=== PATIENT | female | born 1950 | race Caucasian/White ===

== ENCOUNTER 2023-02-20 23:56 | Inpatient (IN) | payer MEDICARE ==
[~2023-02-20] VITALS: Ht 160 cm; Wt 56.2 kg
[2023-02-21] MEDS ORDERED: FAMOTIDINE/PF INJ 20 MG/2 ML VIAL IV ONE ×2 (01:30→01:33)
[2023-02-21] MEDS ORDERED: ONDANSETRON HCL/PF 4 MG/2 ML VIAL IVP ONE (01:30)
[2023-02-21] MEDS ORDERED: IV NS 0.9% 1,000 ML BAG IV ONE (01:30)
[2023-02-21] MEDS ORDERED: ONDANSETRON HCL/PF 4 MG/2 ML VIAL ONE (01:33)
[2023-02-21 02:17] LABS: BASOPHILS % (AUTO) 0.2 % (0.0-2.0); EOSINOPHILS % (AUTO) 0.1 % (0.0-6.0); HEMATOCRIT 40 % (33-45); HEMOGLOBIN 13.1 g/dL (11.5-14.8); LYMPHOCYTES # (AUTO) 0.7 K/uL (0.8-4.8); LYMPHOCYTES % (AUTO) 7.8 % (20.0-44.0); MEAN CORPUSCULAR HEMOGLOBIN 29 PG (26.0-33.0); MEAN CORPUSCULAR HGB CONC 33 g/dl (31.0-36.0); MEAN CORPUSCULAR VOLUME 87 fL (82-100); MONOCYTES # (AUTO) 0.8 K/uL (0.1-1.30); MONOCYTES % (AUTO) 8.2 % (2.0-12.0); NEUTROPHILS % (AUTO) 83.7 % (43.0-81.0); PLATELET COUNT (AUTO) 282 K/uL (150-450); RED BLOOD CELL COUNT(AUTO) 4.55 MIL/uL (4.0-5.2); RED CELL DISTRIBUTION WIDTH 13.6 % (11.5-15.0); WHITE BLOOD COUNT (AUTO) 9.5 K/uL (4.3-11.0)
[2023-02-21 02:24] LABS: CALCIUM, SERUM 9.8 mg/dL (8.5-10.1); CARBON DIOXIDE 26 mmol/L (21-32); CHLORIDE 105 mmol/L (98-107); GLUCOSE 136 mg/dL (74-106); POTASSIUM 3.8 mmol/L (3.5-5.1); SODIUM SERUM 141 mmol/L (136-145); UREA NITROGEN, BLOOD 20 mg/dL (7-18)
[2023-02-21 02:30] LABS: ALANINE AMINOTRANSFERASE 62 U/L (12-78); ALBUMIN 3.9 g/dL (3.4-5.0); ALKALINE PHOSPHATASE 112 U/L (46-116); ASPARTATE AMINOTRANSFERASE 45 U/L (15-37); BILIRUBIN,DIRECT 0.2 mg/dL (0.0-0.2); BILIRUBIN,TOTAL 0.9 mg/dL (0.2-1.0); LIPASE 81 U/L (73-393); TOTAL PROTEIN, SERUM 7.5 g/dL (6.4-8.2)
[2023-02-21] MEDS ORDERED: ASPIRIN 325 MG TABLET ONE (02:59)
[2023-02-21] MEDS ORDERED: ASPIRIN 325 MG TABLET PO ONE (03:00)
[2023-02-21 04:00] VITALS: BP 131/67; TEMP 98.1; O2SAT 93
[2023-02-21] MEDS ORDERED: Z GUARD REMEDY 4 OZ OINT TP PRN (06:00)
[2023-02-21] MEDS: ENOXAPARIN SODIUM 40 MG/0.4 ML DISP.SYRIN SQ SCH (06:00)
[2023-02-21] MEDS ORDERED: MAGNESIUM HYDROXIDE 30 ML UDC PO PRN (06:00)
[2023-02-21] MEDS ORDERED: ZOLPIDEM TARTRATE 5 MG TABLET PO PRN (06:00)
[2023-02-21] MEDS: ASPIRIN 81 MG TAB.CHEW PO SCH (09:00)
[2023-02-21] MEDS: PANTOPRAZOLE 40 MG VIAL IV SCH (09:00)
[2023-02-21] MEDS ORDERED: THYR90TA PO (09:27)
[2023-02-21] MEDS: IV D5/0.45 NACL 1,000 ML IV PRN (12:50)
[2023-02-21 14:38] VITALS: BP 116/73; TEMP 98.5; O2SAT 91
[2023-02-21] MEDS ORDERED: MORPHINE SULFATE INJ 4 MG/ML DISP.SYRIN IV PRN (18:00)
[2023-02-21] MEDS ORDERED: DIATR MEGLU/DIATRIZOATE SODIUM 120 ML BOTTLE (GASTROGRAPHIN) ONE (18:23)
[2023-02-21 20:30] VITALS: BP 139/77; TEMP 97.7; O2SAT 90
[2023-02-21] MEDS: ONDANSETRON HCL/PF 4 MG/2 ML VIAL IVP PRN (20:43)
[2023-02-21] MEDS: MORPHINE SULFATE INJ 2 MG/ML DISP.SYRIN IV PRN (22:18)
[2023-02-22] VITALS: BP 132/88; TEMP 98; O2SAT 90
[2023-02-22] MEDS: MORPHINE SULFATE INJ 2 MG/ML DISP.SYRIN IV PRN ×3 (02:33→21:51)
[2023-02-22] MEDS: IV D5/0.45 NACL 1,000 ML IV PRN ×3 (03:06→21:52)
[2023-02-22 04:00] VITALS: BP 131/78; TEMP 98.1; O2SAT 92
[2023-02-22] MEDS: ENOXAPARIN SODIUM 40 MG/0.4 ML DISP.SYRIN SQ SCH (05:40)
[2023-02-22 05:55] LABS: BASOPHILS % (AUTO) 0.2 % (0.0-2.0); EOSINOPHILS % (AUTO) 0.2 % (0.0-6.0); HEMATOCRIT 40 % (33-45); HEMOGLOBIN 13.3 g/dL (11.5-14.8); LYMPHOCYTES # (AUTO) 0.6 K/uL (0.8-4.8); MEAN CORPUSCULAR HEMOGLOBIN 29 PG (26.0-33.0); MEAN CORPUSCULAR HGB CONC 33 g/dl (31.0-36.0); MEAN CORPUSCULAR VOLUME 88 fL (82-100); MONOCYTES # (AUTO) 0.6 K/uL (0.1-1.30); MONOCYTES % (AUTO) 8.6 % (2.0-12.0); PLATELET COUNT (AUTO) 286 K/uL (150-450); RED BLOOD CELL COUNT(AUTO) 4.55 MIL/uL (4.0-5.2); RED CELL DISTRIBUTION WIDTH 13.4 % (11.5-15.0); WHITE BLOOD COUNT (AUTO) 7.2 K/uL (4.3-11.0)
[2023-02-22] MEDS: ONDANSETRON HCL/PF 4 MG/2 ML VIAL IVP PRN (06:04)
[2023-02-22 06:23] LABS: CALCIUM, SERUM 9.7 mg/dL (8.5-10.1); MAGNESIUM 2.3 mg/dL (1.8-2.4); PHOSPHORUS 4.5 mg/dL (2.5-4.9)
[2023-02-22 06:24] LABS: THYROID STIMULATING HORMONE 0.008 uIU/mL (0.358-3.74)
[2023-02-22 08:00] VITALS: BP 136/75; TEMP 98.1; O2SAT 92
[2023-02-22] MEDS: PANTOPRAZOLE 40 MG VIAL IV SCH ×2 (08:30→23:00)
[2023-02-22] MEDS: ASPIRIN 81 MG TAB.CHEW PO SCH (08:42)
[2023-02-22] MEDS ORDERED: THYROID 30 MG TABLET PO SCH (09:00)
[2023-02-22 12:54] VITALS: BP 127/83; TEMP 98.2; O2SAT 94
[2023-02-22 16:11] VITALS: BP 126/65; TEMP 98.6; O2SAT 94
[2023-02-22 20:00] VITALS: BP 120/75; TEMP 98.5; O2SAT 91
[2023-02-23] VITALS (10 sets, daily range): BP systolic 100–135; BP diastolic 55–80; TEMP 96.8–98.4; O2SAT 91–99
[2023-02-23] MEDS: ENOXAPARIN SODIUM 40 MG/0.4 ML DISP.SYRIN SQ SCH (05:56)
[2023-02-23] MEDS: MORPHINE SULFATE INJ 2 MG/ML DISP.SYRIN IV PRN ×2 (06:57→23:29)
[2023-02-23] MEDS: THYROID 30 MG TABLET PO SCH (07:30)
[2023-02-23] MEDS: IV D5/0.45 NACL 1,000 ML IV PRN ×2 (07:50→21:23)
[2023-02-23] MEDS: ASPIRIN 81 MG TAB.CHEW PO SCH (08:02)
[2023-02-23] MEDS: PANTOPRAZOLE 40 MG VIAL IV SCH ×2 (08:09→20:25)
[2023-02-23 09:18] LABS: BASOPHILS % (AUTO) 0.3 % (0.0-2.0); EOSINOPHILS # (AUTO) 0.2 K/uL (0.0-0.7); HEMATOCRIT 40 % (33-45); HEMOGLOBIN 13.3 g/dL (11.5-14.8); LYMPHOCYTES # (AUTO) 1.2 K/uL (0.8-4.8); LYMPHOCYTES % (AUTO) 15.3 % (20.0-44.0); MEAN CORPUSCULAR HEMOGLOBIN 29 PG (26.0-33.0); MEAN CORPUSCULAR HGB CONC 33 g/dl (31.0-36.0); MEAN CORPUSCULAR VOLUME 88 fL (82-100); NEUTROPHILS # (AUTO) 5.3 K/uL (1.8-8.9); NEUTROPHILS % (AUTO) 69.4 % (43.0-81.0); PLATELET COUNT (AUTO) 256 K/uL (150-450); RED BLOOD CELL COUNT(AUTO) 4.58 MIL/uL (4.0-5.2); RED CELL DISTRIBUTION WIDTH 13.7 % (11.5-15.0); WHITE BLOOD COUNT (AUTO) 7.6 K/uL (4.3-11.0)
[2023-02-23 09:27] LABS: CALCIUM, SERUM 9.2 mg/dL (8.5-10.1); POTASSIUM 3.4 mmol/L (3.5-5.1)
[2023-02-23 11:41] LABS: INR 0.99 (0.91-1.10); PROTHROMBIN TIME 10.4 SECS (9.2-11.1)
[2023-02-23] MEDS ORDERED: POTASSIUM CL. PREMIX PERIPHER. 50 ML IV SCH (12:00)
[2023-02-23] MEDS ORDERED: ANESTHESIA TRAY IN PYXIS 1 EA TRAY MC ONE (12:09)
[2023-02-23] MEDS ORDERED: SCOPOLAMINE PATCH 1 MG/72HR TD ONE (12:09)
[2023-02-23] MEDS ORDERED: ROPIVACAINE HCL 0.5% 5 MG/ML 30ML VIAL ONE (12:10)
[2023-02-23] MEDS ORDERED: Magnesium 1 GM/2 ML VIAL ONE (12:10)
[2023-02-23] MEDS ORDERED: FAMOTIDINE/PF INJ 20 MG/2 ML VIAL IV ONE (12:10)
[2023-02-23] MEDS ORDERED: FENTANYL PF 100MCG/2ML AMPUL ONE (12:10)
[2023-02-23] MEDS ORDERED: ROCURONIUM BROMIDE 50 MG/5 ML ONE (12:10)
[2023-02-23] MEDS ORDERED: BUPIVACAINE 0.25% 75 MG/30 ML VIAL ONE (13:19)
[2023-02-23] MEDS ORDERED: ALBUMIN 5% 250 ML IV ONE ×2 (13:58→13:59)
[2023-02-23] MEDS ORDERED: HYDROMORPHONE INJ 2 MG/ML DISP.SYRIN ONE (14:04)
[2023-02-23] MEDS ORDERED: METRONIDAZOLE 500MG/ NS 100ML 100 ML IV ONE (14:07)
[2023-02-23 18:36] LABS: ALANINE AMINOTRANSFERASE 29 U/L (12-78); ALKALINE PHOSPHATASE 73 U/L (46-116); ASPARTATE AMINOTRANSFERASE 21 U/L (15-37); BILIRUBIN,TOTAL 0.9 mg/dL (0.2-1.0); CALCIUM, SERUM 7.7 mg/dL (8.5-10.1); CARBON DIOXIDE 25 mmol/L (21-32); CHLORIDE 109 mmol/L (98-107); CREATININE 0.9 mg/dL (0.6-1.3); GLUCOSE 152 mg/dL (74-106); MAGNESIUM 2.1 mg/dL (1.8-2.4); POTASSIUM 3.4 mmol/L (3.5-5.1); SODIUM SERUM 143 mmol/L (136-145); TOTAL PROTEIN, SERUM 5.3 g/dL (6.4-8.2); UREA NITROGEN, BLOOD 22 mg/dL (7-18)
[2023-02-23] MEDS: ONDANSETRON HCL/PF 4 MG/2 ML VIAL IVP PRN (23:37)
[2023-02-24] VITALS: BP 112/69; TEMP 98.6; O2SAT 96
[2023-02-24] MEDS: ENOXAPARIN SODIUM 40 MG/0.4 ML DISP.SYRIN SQ SCH (05:29)
[2023-02-24] MEDS: IV D5/0.45 NACL 1,000 ML IV PRN ×2 (05:36→17:45)
[2023-02-24 07:00] VITALS: BP 132/68; TEMP 98.9; O2SAT 95
[2023-02-24] MEDS: THYROID 30 MG TABLET PO SCH (07:30)
[2023-02-24] MEDS: ASPIRIN 81 MG TAB.CHEW PO SCH (09:00)
[2023-02-24] MEDS: PANTOPRAZOLE 40 MG VIAL IV SCH ×2 (09:04→20:30)
[2023-02-24] MEDS: MORPHINE SULFATE INJ 2 MG/ML DISP.SYRIN IV PRN ×3 (09:11→23:16)
[2023-02-24] MEDS ORDERED: TETRACAINE/BENZOCAINE/BUTAMBEN 56 GM SPRAY TP ONE (10:00)
[2023-02-24 13:00] VITALS: BP 127/75; TEMP 98.8; O2SAT 96
[2023-02-24 16:14] VITALS: BP 121/69; TEMP 98.7; O2SAT 97
[2023-02-24 20:00] VITALS: BP 128/70; TEMP 98.2; O2SAT 95
[2023-02-25] VITALS: BP 114/60; TEMP 98.1; O2SAT 90
[2023-02-25] MEDS: IV D5/0.45 NACL 1,000 ML IV PRN ×2 (02:08→09:21)
[2023-02-25 04:00] VITALS: BP 117/60; TEMP 98.1; O2SAT 92
[2023-02-25] MEDS: ENOXAPARIN SODIUM 40 MG/0.4 ML DISP.SYRIN SQ SCH (05:38)
[2023-02-25 07:18] LABS: BASOPHILS % (AUTO) 0.2 % (0.0-2.0); EOSINOPHILS # (AUTO) 0.2 K/uL (0.0-0.7); EOSINOPHILS % (AUTO) 2.2 % (0.0-6.0); HEMATOCRIT 33 % (33-45); HEMOGLOBIN 10.8 g/dL (11.5-14.8); LYMPHOCYTES # (AUTO) 0.8 K/uL (0.8-4.8); LYMPHOCYTES % (AUTO) 8.8 % (20.0-44.0); MEAN CORPUSCULAR HEMOGLOBIN 29 PG (26.0-33.0); MEAN CORPUSCULAR HGB CONC 33 g/dl (31.0-36.0); MEAN CORPUSCULAR VOLUME 87 fL (82-100); MONOCYTES # (AUTO) 0.7 K/uL (0.1-1.30); MONOCYTES % (AUTO) 8.2 % (2.0-12.0); NEUTROPHILS # (AUTO) 7.2 K/uL (1.8-8.9); NEUTROPHILS % (AUTO) 80.6 % (43.0-81.0); PLATELET COUNT (AUTO) 227 K/uL (150-450); RED BLOOD CELL COUNT(AUTO) 3.76 MIL/uL (4.0-5.2); RED CELL DISTRIBUTION WIDTH 13.4 % (11.5-15.0); WHITE BLOOD COUNT (AUTO) 8.9 K/uL (4.3-11.0)
[2023-02-25] MEDS: THYROID 30 MG TABLET PO SCH (07:30)
[2023-02-25 07:45] LABS: CALCIUM, SERUM 8.1 mg/dL (8.5-10.1); CREATININE 0.8 mg/dL (0.6-1.3); MAGNESIUM 1.7 mg/dL (1.8-2.4); POTASSIUM 3.4 mmol/L (3.5-5.1)
[2023-02-25 08:00] VITALS: BP 118/63; TEMP 98.2; O2SAT 94
[2023-02-25] MEDS: PANTOPRAZOLE 40 MG VIAL IV SCH ×2 (08:56→20:27)
[2023-02-25] MEDS: MORPHINE SULFATE INJ 2 MG/ML DISP.SYRIN IV PRN (08:56)
[2023-02-25] MEDS: ASPIRIN 81 MG TAB.CHEW PO SCH (09:00)
[2023-02-25] MEDS: Magnesium 1GM/D5W 100ML PREMIX 100 ML IV SCH ×2 (09:23→10:30)
[2023-02-25] MEDS: POTASSIUM CL. PREMIX PERIPHER. 50 ML IV SCH ×2 (11:45→12:47)
[2023-02-25 12:02] VITALS: BP 114/57; TEMP 98.6; O2SAT 92
[2023-02-25] MEDS ORDERED: NEUTRA PHOS 1 POWD.PACKET PO ONE (16:00)
[2023-02-25 16:22] VITALS: BP 119/61; TEMP 99; O2SAT 98
[2023-02-25 20:00] VITALS: BP 114/67; TEMP 97.9; O2SAT 93
[2023-02-25] MEDS: MAG HYDROX/AL HYDROX/SIMETH 30 ML UDC PO PRN (20:37)
[2023-02-26] MEDS: MAG HYDROX/AL HYDROX/SIMETH 30 ML UDC PO PRN (05:06)
[2023-02-26] MEDS: ONDANSETRON HCL/PF 4 MG/2 ML VIAL IVP PRN ×2 (05:35→16:10)
[2023-02-26] MEDS: IV D5/0.45 NACL 1,000 ML IV PRN ×2 (05:38→22:24)
[2023-02-26] MEDS: ENOXAPARIN SODIUM 40 MG/0.4 ML DISP.SYRIN SQ SCH (06:01)
[2023-02-26 06:55] LABS: BASOPHILS % (AUTO) 0.1 % (0.0-2.0); EOSINOPHILS # (AUTO) 0.2 K/uL (0.0-0.7); EOSINOPHILS % (AUTO) 1.9 % (0.0-6.0); HEMATOCRIT 33 % (33-45); HEMOGLOBIN 11.2 g/dL (11.5-14.8); LYMPHOCYTES # (AUTO) 0.8 K/uL (0.8-4.8); MEAN CORPUSCULAR HEMOGLOBIN 29 PG (26.0-33.0); MEAN CORPUSCULAR HGB CONC 34 g/dl (31.0-36.0); MEAN CORPUSCULAR VOLUME 86 fL (82-100); MONOCYTES # (AUTO) 0.7 K/uL (0.1-1.30); NEUTROPHILS # (AUTO) 6.6 K/uL (1.8-8.9); PLATELET COUNT (AUTO) 249 K/uL (150-450); RED BLOOD CELL COUNT(AUTO) 3.83 MIL/uL (4.0-5.2); RED CELL DISTRIBUTION WIDTH 13.2 % (11.5-15.0); WHITE BLOOD COUNT (AUTO) 8.3 K/uL (4.3-11.0)
[2023-02-26 07:00] VITALS: BP 123/60; TEMP 99; O2SAT 93
[2023-02-26 07:04] LABS: CALCIUM, SERUM 7.8 mg/dL (8.5-10.1); CARBON DIOXIDE 28 mmol/L (21-32); CHLORIDE 103 mmol/L (98-107); CREATININE 0.7 mg/dL (0.6-1.3); GLUCOSE 115 mg/dL (74-106); POTASSIUM 3.3 mmol/L (3.5-5.1); SODIUM SERUM 137 mmol/L (136-145); UREA NITROGEN, BLOOD 11 mg/dL (7-18)
[2023-02-26] MEDS: PANTOPRAZOLE 40 MG VIAL IV SCH (08:59)
[2023-02-26] MEDS: THYROID 30 MG TABLET PO SCH (08:59)
[2023-02-26] MEDS ORDERED: POTASSIUM CHLORIDE 20 MEQ POWDER PACKET PO ONE ×2 (09:00)
[2023-02-26] MEDS ORDERED: MAGNESIUM OXIDE 400 MG TABLET PO ONE (09:00)
[2023-02-26] MEDS: ASPIRIN 81 MG TAB.CHEW PO SCH (09:00)
[2023-02-26] MEDS: ACETAMINOPHEN 325 MG TABLET PO PRN (09:00)
[2023-02-26] MEDS: ENSURE CLEAR 237 ML LIQUID (MIX BERRY) PO SCH ×2 (14:12→17:06)
[2023-02-26 16:00] VITALS: BP 124/71; TEMP 98.4; O2SAT 93
[2023-02-26 20:00] VITALS: BP 118/79; TEMP 98.8; O2SAT 95
[2023-02-26] MEDS ORDERED: ONDANSETRON HCL/PF 4 MG/2 ML VIAL IV PRN (20:30)
[2023-02-26] MEDS: MORPHINE SULFATE INJ 2 MG/ML DISP.SYRIN IV PRN (21:30)
[2023-02-26] MEDS: PANTOPRAZOLE 40 MG/PACK PACK PO SCH (21:33)
[2023-02-26] MEDS ORDERED: POTASSIUM CHLORIDE 20 MEQ TAB.PRT.SR PO ONE (23:00)
[2023-02-27] MEDS: ENOXAPARIN SODIUM 40 MG/0.4 ML DISP.SYRIN SQ SCH (06:25)
[2023-02-27 06:50] LABS: BASOPHILS % (AUTO) 0.2 % (0.0-2.0); EOSINOPHILS # (AUTO) 0.1 K/uL (0.0-0.7); EOSINOPHILS % (AUTO) 1.6 % (0.0-6.0); HEMATOCRIT 34 % (33-45); HEMOGLOBIN 11.2 g/dL (11.5-14.8); LYMPHOCYTES # (AUTO) 0.8 K/uL (0.8-4.8); LYMPHOCYTES % (AUTO) 9.4 % (20.0-44.0); MEAN CORPUSCULAR HEMOGLOBIN 29 PG (26.0-33.0); MEAN CORPUSCULAR HGB CONC 33 g/dl (31.0-36.0); MEAN CORPUSCULAR VOLUME 86 fL (82-100); MONOCYTES # (AUTO) 0.9 K/uL (0.1-1.30); MONOCYTES % (AUTO) 10.7 % (2.0-12.0); NEUTROPHILS # (AUTO) 6.9 K/uL (1.8-8.9); NEUTROPHILS % (AUTO) 78.1 % (43.0-81.0); PLATELET COUNT (AUTO) 286 K/uL (150-450); RED BLOOD CELL COUNT(AUTO) 3.92 MIL/uL (4.0-5.2); RED CELL DISTRIBUTION WIDTH 13.3 % (11.5-15.0); WHITE BLOOD COUNT (AUTO) 8.8 K/uL (4.3-11.0)
[2023-02-27 07:15] LABS: CALCIUM, SERUM 8.2 mg/dL (8.5-10.1); CARBON DIOXIDE 24 mmol/L (21-32); CHLORIDE 103 mmol/L (98-107); CREATININE 0.7 mg/dL (0.6-1.3); GLUCOSE 110 mg/dL (74-106); POTASSIUM 4.2 mmol/L (3.5-5.1); SODIUM SERUM 134 mmol/L (136-145); UREA NITROGEN, BLOOD 10 mg/dL (7-18)
[2023-02-27 07:30] VITALS: BP 120/77; TEMP 97.9; O2SAT 94
[2023-02-27] MEDS: THYROID 30 MG TABLET PO SCH (08:01)
[2023-02-27] MEDS: ENSURE CLEAR 237 ML LIQUID (MIX BERRY) PO SCH ×2 (09:00→13:00)
[2023-02-27] MEDS: PANTOPRAZOLE 40 MG/PACK PACK PO SCH (09:00)
[2023-02-27] MEDS: ASPIRIN 81 MG TAB.CHEW PO SCH (09:40)
[2023-02-27] MEDS: MAG HYDROX/AL HYDROX/SIMETH 30 ML UDC PO PRN (14:25)
[2023-02-27] MEDS: ACETAMINOPHEN 325 MG TABLET PO PRN (14:25)
[2023-02-27 16:00] VITALS: BP 123/75; TEMP 97.7; O2SAT 94
== END 2023-02-27 19:10 | DRG 329 ==
LOC: ER 02-21 00:08 → TELE 02-21 11:18 → MED 02-21 12:55 → TELE 02-21 13:34 → MED 02-25 12:23
PROVIDERS: ADMIT Nurse Practitioner Family; ATTEND Nurse Practitioner Acute Care
PROC: 0DB80ZZ Excision of Small Intestine, Open Approach (ICD-10-PCS; principal; 2023-02-23)
PROC: 0DNW0ZZ Release Peritoneum, Open Approach (ICD-10-PCS; 2023-02-23)
DX: K56.52 Intestinal adhesions [bands] with complete obstruction (principal); I21.A1 Myocardial infarction type 2; E44.1 Mild protein-calorie malnutrition; E86.0 Dehydration; N20.0 Calculus of kidney; E03.9 Hypothyroidism, unspecified; Z90.49 Acquired absence of other specified parts of digestive tract; Z88.5 Allergy status to narcotic agent; Z91.018 Allergy to other foods; R79.89 Other specified abnormal findings of blood chemistry; E83.42 Hypomagnesemia; E87.6 Hypokalemia; E88.09 Other disorders of plasma-protein metabolism, not elsewhere classified; K21.9 Gastro-esophageal reflux disease without esophagitis; K56.7 Ileus, unspecified
CPT/HCPCS: 36415; 71045-TC; 74018; 74250-TC; 76770-TC; 76856-TC; 80048-TC; 80053-TC; 80076-TC; 83690-TC; 83735-TC; 84100-TC; 84439-TC; 84443-TC; 84484-TC; 85025-TC; 85610-TC; 86850-TC; 93307-TC; 97110-TC; 97116-TC; 97530-TC; A4223; C9113; G0378; J0330; J0690; J1100; J1170; J1650; J2270; J2405; J2704; J2765; J2795; J3010; J3475; J3480; J3490; J7030; J7050; P9045; Q9963